=== PATIENT | female | born 1985 | race Two or more races ===

== ENCOUNTER 2016-10-06 14:24 | Emergency (ER) | payer SELFPAY ==
[~2016-10-06] VITALS: Ht 154.9 cm; Wt 56.7 kg
[2016-10-06 14:38] VITALS: BP 108/57
--- NOTE | 2016-10-06 15:23 | PHYS DOC ---
Past Medical History Past Medical History: No Pertinent History Past Surgical History: No Surgical History Additional Information: 0.25 PPD Alcohol Use: Occasionally Additional Information: DRINKS 3 TIMES A WEEK Drug Use: None Adult General Chief Complaint Chief Complaint: FOREIGN BODY VAGINA HPI HPI Patient is a 31 year old female presents to the emergency department with a history of placing a tampon in yesterday. She states she became drunk last night , and had sex. She states she does not remember taking the tampon out. She denies abdominal pain and discomfort, denies, other vaginal discharge than menstrual cycle. She denies odor. Patient also states she is not worried about STD's and does not want to be checked for them. Review of Systems Review of Systems Constitutional: Denies fever or chills [] Eyes: Denies change in visual acuity, redness, or eye pain [] HENT: Denies nasal congestion or sore throat [] Respiratory: Denies cough or shortness of breath [] Cardiovascular: No additional information not addressed in HPI [] GI: Denies abdominal pain, nausea, vomiting, bloody stools or diarrhea [] : Denies dysuria or hematuria. Concerned she has a retained tampon Musculoskeletal: Denies back pain or joint pain [] Integument: Denies rash or skin lesions [] Neurologic: Denies headache, focal weakness or sensory changes [] Allergies Allergies Allergies Coded Allergies Type Severity Reaction Last Updated Verified No Known Drug Allergies 06/06/14 No Physical Exam Physical Exam Constitutional: Well developed, well nourished, no acute distress, non-toxic appearance. [] HENT: Normocephalic, atraumatic, bilateral external ears normal, oropharynx moist, no oral exudates, nose normal. [] Eyes: PERRLA, EOMI, conjunctiva normal, no discharge. [] Neck: Normal range of motion, no tenderness, supple, no stridor. [] Cardiovascular:Heart rate regular rhythm Lungs & Thorax: no respiratory distress Skin: Warm, dry, no erythema, no rash. [] Back: No tenderness Extremities: No tenderness, no cyanosis, no clubbing, ROM intact, no edema. [] Neurologic: Alert and oriented X 3, normal motor function, normal sensory function, no focal deficits noted. [] Psychologic: Affect normal, judgement normal, mood normal. [] Vaginal exam: speculum exam with no foreign body noted, Did notice the string of IUD in cervix area. Current Patient Data Vital Signs Vital Signs Date Time Temp Pulse Resp B/P Pulse Ox O2 Delivery O2 Flow Rate FiO2 10/06/16 14:38 97.9 72 16 108/57 99 Room Air 97.9 EKG EKG [] Radiology/Procedures Radiology/Procedures [] Course & Med Decision Making Course & Med Decision Making Pertinent Labs and Imaging studies reviewed. (See chart for details) Patient refused to have STD check, or any vaginal swabs. Patient will be discharged home in stable condition. Recommended followup with primary care provider in 3-5 days. Signs and symptoms to return to the emergency department have been provided. [] Dragon Disclaimer Dragon Disclaimer This electronic medical record was generated, in whole or in part, using a voice recognition dictation system. Departure Departure Impression: Primary Impression: Normal vaginal exam Disposition: HOME, SELF-CARE Condition: STABLE Referrals: NO PCP (PCP) Patient Instructions: Pelvic Exam Additional Instructions: There was no retained tampon noted. Your IUD string was noted in the cervical area. Followup with your primary care provider in 5-7 days Return to emergency department as needed for signs and symptoms that become worse. VERITO SAUCEDA [employer] H[employer]ER Oct 06, 2016 15:23
== END 2016-10-06 15:29 | disposition home or self-care (01) ==
LOC: ER 14:24
DX: Z01.419 Encounter for gynecological examination (general) (routine) without abnormal findings (principal); F17.200 Nicotine dependence, unspecified, uncomplicated
CPT/HCPCS: 99283

== ENCOUNTER 2018-12-13 20:14 | Emergency (ER) | payer SELFPAY ==
[~2018-12-13] VITALS: Ht 154.9 cm; Wt 59.0 kg
[2018-12-13] MEDS ORDERED: ONDANSETRON PF 4 MG/2 ML VIAL. IV ONE (21:00)
[2018-12-13] MEDS ORDERED: diphenhydrAMINE 50 MG/ML VIAL IVP ONE (21:00)
[2018-12-13] MEDS ORDERED: IV NORMAL SALINE 1000ML BAG 1,000 ML IV ONE (21:00)
[2018-12-13 21:52] VITALS: BP 98/55
--- NOTE | 2018-12-13 22:00 | PHYS DOC ---
Past Medical History Past Medical History: No Pertinent History (JACOB GREENWOOD APRN) Past Surgical History: No Surgical History (JACOB GREENWOOD APRN) Alcohol Use: Occasionally Drug Use: None (JACOB GREENWOOD APRN) Adult General Chief Complaint Chief Complaint: ALLERGIC REACTION HPI HPI Patient is a 33 year old female who presents to the emergency department with complaints of possible allergic reaction after taking a vitamin B complex injection that she purchased in [place]. Patient states that shortly after she had injected the medication into her right buttock she felt hot all over, lightheaded, itchy, and nauseated. She denies any vomiting, diarrhea, abdominal pain, fever, or wheezing. She reports flushing of her skin, itching all over, back pain, and pressure in her ears. (JACOB GREENWOOD APRN) Review of Systems Review of Systems Constitutional: Denies fever or chills [] Eyes: Denies change in visual acuity, redness, or eye pain [] HENT: Denies nasal congestion or sore throat; reports bilateral ear pressure [] Respiratory: Denies cough or wheezing, see HPI Cardiovascular: No additional information not addressed in HPI [] GI: Denies abdominal pain, vomiting, or diarrhea; reports nausea : Denies dysuria or hematuria [] Musculoskeletal: reports back pain Integument: See HPI Neurologic: Denies headache, focal weakness or sensory changes [] Complete systems were reviewed and found to be within normal limits, except as documented in this note. (JACOB GREENWOOD APRN) Current Medications Current Medications Current Medications Medications (Trade) Dose Ordered Sig/[place] Start Time Stop Time Status Last Admin Dose Admin Diphenhydramine HCl (Benadryl) 25 mg 1X ONCE 12/13/18 21:00 12/13/18 21:01 DC 12/13/18 20:52 25 MG Ondansetron HCl (Zofran) 4 mg 1X ONCE 12/13/18 21:00 12/13/18 21:01 DC 12/13/18 20:52 4 MG Sodium Chloride 1,000 ml @ 1,000 mls/hr 1X ONCE 12/13/18 21:00 12/13/18 21:59 DC 12/13/18 20:50 1,000 MLS/HR (KAILEY SWIFT MD) Allergies Allergies Allergies Coded Allergies Type Severity Reaction Last Updated Verified No Known Drug Allergies 06/06/14 No (KAILEY SWIFT MD) Physical Exam Physical Exam Constitutional: Well developed, well nourished, no acute distress, non-toxic appearance. [] HENT: Normocephalic, atraumatic, bilateral external ears normal, oropharynx moist, no oral exudates, nose normal. [] Eyes: PERRLA,conjunctiva normal, no discharge. [] Neck: Normal range of motion, no stridor. [] Cardiovascular:Heart rate regular rhythm, no murmur [] Lungs & Thorax: Bilateral breath sounds clear to auscultation [] Skin: Warm, dry, no rash; generalized flushed appearance with increased erythema around medication injection site on R buttock Extremities: No tenderness, no cyanosis, no clubbing, ROM intact, no edema. [] Neurologic: Alert and oriented X 3, no focal deficits noted. [] Psychologic: Affect normal, judgement normal, mood normal. [] (JACOB GREENWOOD APRN) Current Patient Data Vital Signs Vital Signs Date Time Temp Pulse Resp B/P (MAP) Pulse Ox O2 Delivery O2 Flow Rate FiO2 12/13/18 21:52 58 16 98/55 (69) 100 Room Air 12/13/18 20:25 97.6 97.6 (KAILEY SWIFT MD) EKG EKG [] (JACOB GREENWOOD APRN) Radiology/Procedures Radiology/Procedures [] (JACOB GREENWOOD APRN) Course & Med Decision Making Course & Med Decision Making Pertinent Labs and Imaging studies reviewed. (See chart for details) dx: adverse medication reaction Pt was given 1L of NS, 25 mg IV benadryl, and 4 mg IV zofran in the ER. Reports feeling better after medications. Skin color returned to normal after medications. Pt instructed to stop using medication from [place], follow up with PCP if sx persist, return to ER if sx worsen. Patient verbalized an understanding of home care, medications, follow-up, and return to ED instructions and was in agreement with the plan of care. [] (JACOB GREENWOOD APRN) Course & Med Decision Making Staff Physician Addendum: I was working in the ER during the course of this patient's visit. I was available for consultation as needed, but I was not directly involved in the care of this patient. (KAILEY SWIFT MD) Dragon Disclaimer Dragon Disclaimer This electronic medical record was generated, in whole or in part, using a voice recognition dictation system. (JACOB GREENWOOD APRN) Departure Departure Impression: Primary Impression: Adverse reaction to drug Disposition: HOME, SELF-CARE Condition: STABLE Referrals: NO PCP (PCP) Patient Instructions: Drug Allergy, [id number] Additional Instructions: Stop using the medication purchased in [place]. Take 25 mg of benadryl every 6 hours as needed. Follow up with your PCP if symptoms persist, return to the ER if symptoms worsen. Problem Qualifiers Primary Impression: Adverse reaction to drug Encounter type: initial encounter Qualified Codes: T50.905A - Adverse effect of unspecified drugs, medicaments and biological substances, initial encounter JACOB GREENWOOD APRN Dec 13, 2018 22:00 KAILEY SWIFT MD Dec 14, 2018 21:26
== END 2018-12-13 22:20 | disposition home or self-care (01) ==
LOC: ER 20:14
DX: T50.995A Adverse effect of other drugs, medicaments and biological substances, initial encounter (principal); R42 Dizziness and giddiness; R11.0 Nausea; Y92.89 Other specified places as the place of occurrence of the external cause
CPT/HCPCS: 96361; 96374; 96375; 99284; J1200; J2405; J7030